=== PATIENT | female | born 1990 | race African-American/Black ===

== ENCOUNTER 2020-08-05 08:57 | Emergency (ER) | payer MEDICAID ==
[~2020-08-05] VITALS: Ht 167.6 cm; Wt 69.9 kg
[2020-08-05 11:16] VITALS: BP 126/76
== END 2020-08-05 11:22 | disposition home or self-care (01) ==
LOC: ER 08:57
DX: F41.9 Anxiety disorder, unspecified (principal); R07.89 Other chest pain; R51.9 Headache, unspecified; R20.0 Anesthesia of skin
CPT/HCPCS: 36415; 71045; 84484; 93005